=== PATIENT | female | born 1995 | race Caucasian/White ===

== ENCOUNTER → 2017-11-26 | Outpatient (REF) | LOC: ZLAB.WCH 08:47 | DX: Z01.89 Encounter for other specified special examinations (principal) ==

== ENCOUNTER 2020-01-22 07:08 | Day surgery (SDC) | payer BC ==
[~2020-01-22] VITALS: Ht 160 cm; Wt 64.5 kg
[2020-01-22 07:37] VITALS: BP 132/80; PULSE 80; TEMP 98.2
[2020-01-22] MEDS ORDERED: VALTREX1 GM PO (07:47)
--- NOTE | 2020-01-22 07:47 | NUR ---
TO RM AT 0720- CALL LIGHT IN REACH BOYFRIENElvia TONG AT BEDSIDE.
[2020-01-22 11:10] VITALS: BP 121/70; PULSE 96; TEMP 98.9
--- NOTE | 2020-01-22 11:10 | NUR ---
TO RM 8 PER CART FROM PACU. PATIENT DRINKING WATER AND TOLERATING WELL. LEFT FOOT ELEVATED ON PILLOW. ALERT ORIENTED X3, TALKING TO STAFF AND BOYFRIEND. C/O DULL PAIN. DRESSING ON LEG CLEAN DRY INTACT. ABLE TO WIGGLE TOES. DRESSING ON L THIGH CLEAN DRY INTACT.
[2020-01-22 11:18] VITALS: TEMP 98.1
[2020-01-22 11:25] VITALS: BP 116/82; PULSE 77
--- NOTE | 2020-01-22 11:25 | NUR ---
RECEIVED CRACKERS NO OTHER CHANGES
[2020-01-22 11:40] VITALS: BP 110/62; PULSE 82
--- NOTE | 2020-01-22 11:40 | NUR ---
UP AMBULATED TO BATHROOM USING CRUTCHES. VOIDED AND AMBULATED BACK TO . TOLERATED WELL.
--- NOTE | 2020-01-22 11:50 | NUR ---
RECEIVED DISCHARGE INSTRUCTIONS AND VERBALIZED UNDERSTANDING. PATIENT TO SEE DR PATTERSON IN MORNING SCHEDULED.
--- NOTE | 2020-01-22 12:11 | NUR ---
DISCHARGED PER WC BY NURSING STAFF TO PRIVATE CAR IN CARE OF BOYFRIEND -RAN.
== END 2020-01-22 12:15 | disposition home or self-care (01) ==
LOC: SDCO 07:08
DX: Q70.32 Webbed toes, left foot (principal)
CPT/HCPCS: J0690; J1885; J2405; J2704; J3010; J7120